=== PATIENT | female | born 1965 | race Caucasian/White ===

== ENCOUNTER → 2024-08-13 13:27 | Outpatient (CLI) | payer OTHER, SELFPAY ==
--- NOTE | 2024-08-13 13:39 | DI.RAD.S_ITS ---
PROCEDURE: XR LUMBAR SPINE 2-3V INDICATIONS: BACK PAIN TECHNIQUE: 3 views of the lumbar spine were acquired. COMPARISON: None. FINDINGS: Diffuse osseous demineralization. Five non rib-bearing lumbar vertebrae are present. Minimal levocurvature of the lumbar spine with the apex at L4 . Mildly exaggerated lumbar lordosis. 4 mm retrolisthesis of L2 on L3. Mild multilevel hypertrophy of the spinous processes. Multilevel severe facet arthropathy, most conspicuous at L3-L4, L4-L5, and L5-S1. Aortic vascular calcifications. IMPRESSION: Multilevel lumbar facet arthropathy, most conspicuous at L3-L4, L4-L5, and L5-S1. Dictated by: Sarmad Bojorquez M.D. on 08/13/2024 at 16:12 Approved by: Sarmad Bojorquez M.D. on 08/13/2024 at 16:13
== END ==
PROVIDERS: PCP Family Medicine; Referring Provider Internal Medicine Cardiovascular Disease; Visit Provider Internal Medicine Cardiovascular Disease
DX: M47.816 Spondylosis without myelopathy or radiculopathy, lumbar region (principal); M47.817 Spondylosis without myelopathy or radiculopathy, lumbosacral region; M54.50 Low back pain, unspecified
CPT/HCPCS: 72100